=== PATIENT | female | born 1985 | race Two or more races ===

== ENCOUNTER 2022-07-13 21:51 | Emergency (ER) | payer MEDICAID, OTHER ==
[~2022-07-13] VITALS: Ht 152.4 cm; Wt 66.0 kg
[2022-07-13 23:04] VITALS: BP 135/86
[2022-07-14] MEDS ORDERED: KETOROLAC TROMETH 30 MG/ML 1ML VIAL IM ONE (00:30)
[2022-07-14] MEDS ORDERED: IBUP800T26 PO (00:45)
[2022-07-14] MEDS ORDERED: HYDROcodone-ACET 5/325MG TAB PO ONE (01:00)
[2022-07-14] MEDS ORDERED: HYDROcodone-ACET 5/325MG TAB ONE (01:02)
== END 2022-07-14 01:13 | disposition home or self-care (01) ==
LOC: ER 21:51
DX: S82.62XA Displaced fracture of lateral malleolus of left fibula, initial encounter for closed fracture (principal); W18.39XA Other fall on same level, initial encounter; Y93.89 Activity, other specified; Y92.098 Other place in other non-institutional residence as the place of occurrence of the external cause; Y99.8 Other external cause status
CPT/HCPCS: 29515; 73610; 73630; 96372; 99284; J1885; J7030